=== PATIENT | male | born 2000 | race Caucasian/White ===

== ENCOUNTER 2025-04-11 22:23 | Emergency (ER) | payer OTHER ==
[~2025-04-11] VITALS: Ht 172.7 cm; Wt 68.0 kg
[2025-04-11] MEDS ORDERED: ACETAMINOPHEN 500 MG TABLET ONE (23:19)
[2025-04-11 23:20] LABS: PLATELET COUNT (AUTO) 287 K/uL (152-348); RED BLOOD CELL COUNT(AUTO) 5.37 MIL/uL (4.06-5.63); RED CELL DISTRIBUTION WIDTH 13.0 % (12.1-16.2); WHITE BLOOD COUNT (AUTO) 9.2 K/uL (3.6-10.2)
[2025-04-11] MEDS ORDERED: IBUPROFEN 600 MG TABLET ONE (23:20)
[2025-04-11] MEDS: IBUPROFEN 600 MG TABLET PO ONE (23:23)
[2025-04-11] MEDS: ACETAMINOPHEN 500 MG TABLET PO ONE (23:24)
[2025-04-11 23:28] LABS: CREATININE 1.1 mg/dL (0.6-1.3); SODIUM SERUM 138 mmol/L (136-145); UREA NITROGEN, BLOOD 16 mg/dL (7-18)
[2025-04-11 23:40] LABS: ASPARTATE AMINOTRANSFERASE 14 U/L (15-37); TOTAL PROTEIN, SERUM 8.0 g/dL (6.4-8.2)
[2025-04-12 00:30] VITALS: BP 131/64
[2025-04-12 00:58] VITALS: BP 134/69; TEMP 98; O2SAT 99
== END 2025-04-12 01:06 | disposition home or self-care (01) ==
LOC: ER 22:36
DX: R07.9 Chest pain, unspecified (principal)
CPT/HCPCS: 36415; 71045; 84484; 85025; A4606; A4663; A9150